=== PATIENT | female | born 1965 | race Caucasian/White ===

== ENCOUNTER 2019-07-08 16:20 | Emergency (ER) | payer MEDICAID, SELFPAY ==
[2019-06-30 10:36] VITALS: BMI 34.3
[2019-07-08 16:22] VITALS: BP 109/63; PULSE 74; RESP 18; TEMP 36.8; O2SAT 96; BMI 39.2
[2019-07-08 16:26] VITALS: BP 109/63; PULSE 71; RESP 16; TEMP 36.8; O2SAT 96
--- NOTE | 2019-07-08 17:02 | CT_ITS ---
STUDY: CT ABDOMEN AND PELVIS WITHOUT CONTRAST REASON FOR EXAM: Female, 54 years old. RUQ PAIN X 3 MONTHS. RADIATION DOSAGE (If Supplied By Facility): CTDIvol = ( 20.23 ) mGy, DLP = ( 1265.03 ) mGycm TECHNIQUE: Transaxial images were obtained from the dome of the diaphragm to the symphysis pubis without oral contrast, and without intravenous contrast. Sagittal and coronal images were reconstructed. Individualized dose optimization techniques were used for this CT. COMPARISON: None. FINDINGS: The visualized lung bases are unremarkable. The visualized portions of the heart are within normal limits. Normal liver. There are surgical clips in the gallbladder fossa consistent with a prior cholecystectomy. Normal spleen. There is a 3.4 cm cystic mass of the tail of the pancreas. There is otherwise atrophy of the pancreas. Normal bilateral adrenal glands. Normal right kidney. Normal left kidney. Evaluation of the GI tract is limited by absence of oral contrast. Cannot exclude stomach wall thickening. No dilated loops of bowel or evidence for obstruction. Cannot exclude segmental thickening of the rodriguez of the small or large bowel. Cannot exclude enteritis or colitis. Moderate diffuse fecal retention. Appendix within normal limits. There is diffuse atherosclerotic calcification of the abdominal aorta, without a demonstrated aneurysm. There is an IVC filter in place. Normal retroperitoneum. Normal urinary bladder. There is atrophy of the uterus. Normal abdominal wall. There are diffuse degenerative changes of the visualized lumbar spine. CT/Abdomen/Pelvis W IV Cont ONLY IMPRESSION: There is a 3.4 cm cystic mass of the tail of the pancreas, likely a pseudocyst. However recommend follow-up in 6 months to establish stability. Otherwise no definite acute or significant abnormality seen. Electronically Signed: Jean Gonzales MD at 18:46 EST , Service support ,
--- NOTE | 2019-07-08 17:03 | ED.VISSUMM ---
- ER Visit Summary Date of Service: 07/08/19 Chief Complaint: Upper quadrant abdominal pain for 3 months History of Present Illness: The patient is a 54 F history of prior stroke, hypertension and valvular heart disease. Prior cholecystectomy and heart valve surgery. Patient states that she has had right upper quadrant abdominal pain constantly for last 3 months. Also associated nausea intermittent vomiting. No diarrhea. No fever. No dysuria. Physical Examination: Middle-aged female no acute distress vital signs are stable afebrile. Her initial blood pressure is 109/63. She does not look septic or toxic. H EENT exam unremarkable. Neck nontender. Lungs are to auscultation. Heart regular rhythm no murmur rate about 70. Abdomen is soft. Nondistended. Normal bowel sounds. No peritoneal signs. She is tender in the right upper quadrant. She had a prior sternotomy on her chest. There are no peritoneal signs. No pulsatile mass. Moving all 4 extremities. No edema. Neurologically she is awake and alert. She does have dysarthria from a prior stroke. But her speech is understandable. Test Results: Labs unremarkable. CBC white count of 10. Hemoglobin 14. No bands. Chemistries normal normal creatinine gap. Liver enzymes normal. Lipase 63 not elevated. UA normal. CAT scan of the abdomen pelvis with IV contrast read by the radiologist and reviewed by me shows a pancreatic cyst likely a pseudocyst of 3.4 cm. There is also an IVC filter seen. The appendix was seen and is read as normal. Emergency Department Course and Treatment: Middle-aged female with right upper quadrant abdominal pain with a prior cholecystectomy. She will receive fentanyl for pain due to her blood pressure being around 100. IV fluids. Labs and a CT of the abdomen pelvis. Treatment Plan: Repeat exam patient is doing well at 1900. I went over all test results with her. She will be discharged home with outpatient follow-up with a primary care provider nurse practitioner Faina Best. Disposition: Discharge Impression: Acute right upper quadrant abdominal pain Incidental finding of a pancreatic cyst most likely a pseudocyst of 3.4 cm. This note was generated with Cinexioation software. It may contain incorrect words, spelling, and punctuation that were not noted in review of the chart prior to signing ED Disposition - Plan for ED Patient: Disposition: Home or Assisted Living Referrals: Eloise Best, RAVEN-C [Primary Care Provider] -
[2019-07-08 17:23] LABS: Absolute Lymphocyte Count 3.06 X10^3/uL (0.83-4.51); Absolute Neutrophil Count 6.5 X10^3/uL (2.0-7.7); Basophil# 0.03 X10^3/uL; Basophil% 0.3 % (0-1); Eosinophil# 0.19 X10^3/uL; Eosinophils% 1.8 % (0-5); Hematocrit 43.7 % (37-47); Hemoglobin 14.1 g/dL (12.0-15.0); Lymphocyte # 3.06 X10^3/ul (4.0); Lymphocyte % 29.5 % (19-41); Mean Corp Hgb Conc 32.3 g/dL (32-36); Mean Corpuscular Hgb 27.8 pg (27.0-32.0); Mean Platelet Vol. 8.7 fl (6.2-12.0); Monocyte# 0.58 X10^3/uL; Monocyte% 5.6 % (0-10); NRBC Flagged by Analyzer 0 % (0-5); Neutrophil # 6.49 X10^3/uL (2.7-7.7); Neutrophil % 62.6 % (47-70); Platelet Count 215 K/mm3 (150-450); RBC Distribution Width CV 13.7 % (11.6-14.6); RBC Distribution Width SD 42.5 fl (35.1-43.9); Red Blood Count 5.08 M/mm3 (4.2-5.4); White Blood Count 10.4 K/mm3 (4.4-11.0)
[2019-07-08] MEDS: fentaNYL 100 MCG/2 ML Ampul 25 MCG IV (17:25)
[2019-07-08] MEDS: Ondansetron 4 MG/2 ML Vial IV (17:25)
[2019-07-08] MEDS: 0.9% Normal Saline 1,000 ML 1000 ML IV (17:25)
[2019-07-08 17:26] VITALS: BP 110/67; PULSE 78; RESP 16; O2SAT 98
[2019-07-08 17:44] LABS: AST(SGOT) 27 U/L (15-37); Alanine Aminotransfer ALT/SGPT 39 U/L (13-56); Albumin, Serum 3.3 g/dL (3.2-5.0); Alkaline Phosphatase 95 U/L (45-117); Anion Gap 5 (5-15); BUN 11 mg/dL (7-18); BUN/Creat Ratio 14.5 RATIO (10-20); Calcium,Total 8.3 mg/dL (8.5-10.1); Chloride 104 mmol/L (98-107); Creatinine, Serum 0.76 mg/dL (0.55-1.02); EST Glomerular Filtration Rate 84 mL/min (>60); Est Glom Filt Rate - Afr Amer 101 mL/min (>60); Estimated Creatinine Clearance 68.37 ml/min; Glucose 89 mg/dL (74-106); Lipase 63 U/L (73-393); Potassium 4.2 mmol/L (3.5-5.1); Protein, Total 7.3 g/dL (6.4-8.2); Sodium Level 137 mmol/L (136-145)
[2019-07-08 18:13] LABS: Bacteria 0 SEEN /hpf (None Seen); Mucous, Urine 0 SEEN /hpf (<or=2+); Red Blood Cells-Urine 0 SEEN /hpf (0-5); Squamous Epithelial Cells - UA 0 SEEN /hpf (5-10); White Blood Cells 0 SEEN /hpf (0-5)
[2019-07-08 18:19] LABS: Color, Urine Yellow (Yellow); Glucose, Dipstick Normal (Normal); Ketone-Dipstick Negative (Negative); Leukocyte Esterase-Dipstick Negative /ul (Negative); Nitrite-Dipstick Negative (Negative); Occult Blood-Urine Negative /ul (Negative); Protein-Dipstick Negative (Negative); Specific Gravity, Urine 1.005 (1.002-1.030); Urine Bilirubin Dipstick Negative (Negative); Urine Clarity Clear (Clear); Urine Urobilinogen Normal (Normal); Urine pH 6.5 (5.0 - 8.0)
[2019-07-08 18:37] VITALS: PULSE 68; RESP 12; O2SAT 95
--- NOTE | 2019-07-08 19:03 | DCINST.ED_ITS ---
ED Disposition - Plan for ED Patient: Disposition: Home or Assisted Living Instructions: ABDOMINAL PAIN, Unknown Cause, (Female) Referrals: Eloise Best, GAS TENDER-C [Primary Care Provider] - 1 Week Additional Instructions: Lab work was all normal. Your CAT scan showed an incidental finding of a small cyst on your pancreas most likely a pseudocyst. You can follow that up with your primary care provider.
[2019-07-08 19:42] VITALS: BP 92/59; PULSE 68; RESP 16; O2SAT 97
--- NOTE | 2019-07-08 19:43 | ED.RN ---
REPORT TO [facility]. REVIEWED D/C INSTRUCTIONS, FOLLOW UP CARE, AND S/S THAT WOULD WARRANT A RETURN TO THE ED WITH PT. PT VERBALIZED AN UNDERSTANDING AND DENIES FURTHER QUESTIONS FOR THIS RN. PT SKIN P/W/D, RESP EVEN AND UNLABORED, PT A&O X 3, NO DISTRESS NOTED. PT OUT OF ED WITH EMS.
--- NOTE | 2019-07-08 20:27 | ED.RN ---
THIS RN SPOKE WITH DONITA RAMIREZ AT [facility]. RN REPORTS SHE DID NOT RECEIVE REPORT ABOUT PTS RETURN FROM [facility]. THIS RN REVIEWED PT VISIT WITH NURSE, AND D/C PAPERWORK AND FAXED IT BACK TO [facility] #[phone]. OFFERED FOR DONITA TO SPEAK WITH PRIMARY RN, WHICH SHE DECLINED. PHONE NUMBER FOR PT [employer] WAS GIVEN TO NURSE DONITA. DONITA VERBALIZES NO FURTHER QUESTIONS AT THIS TIME.
== END 2019-07-08 19:45 | disposition home or self-care (01) ==
LOC: ED 17:25
PROVIDERS: Emergency Provider Emergency Medicine; Family Provider Nurse Practitioner Adult Health; PCP Nurse Practitioner Adult Health
DX: K86.2 Cyst of pancreas (principal); R10.11 Right upper quadrant pain; R11.2 Nausea with vomiting, unspecified; I10 Essential (primary) hypertension; I69.322 Dysarthria following cerebral infarction; Z90.49 Acquired absence of other specified parts of digestive tract; Z79.82 Long term (current) use of aspirin; Z79.899 Other long term (current) drug therapy; F17.200 Nicotine dependence, unspecified, uncomplicated
CPT/HCPCS: 74177; 80048; 80076; 81001; 83690; 85025; 96361; 96374; 96375; 99285; J7030; P9612; Q9967; A4216; J2405

== ENCOUNTER → 2019-07-14 13:55 | Outpatient (CLI) | payer MEDICAID, SELFPAY ==
[2019-06-30 10:36] VITALS: BMI 34.3
[2019-07-08 16:22] VITALS: BMI 39.2
--- NOTE | 2019-07-14 13:59 | ECHOD_ITS ---
Reason For Study: VALVE REPLACEMENT EVAL Procedure This was a 2D Doppler, Color Flow transthoracic echocardiogram. The study was technically limited. The study was technically difficult. Limited views were obtained. Exam performed in department. Left Ventricle Normal LV size. Left ventricular systolic function is normal. The estimated ejection fraction is 60 %. Stage 1 diastolic dysfunction. No regional wall motion abnormalities noted. Right Ventricle Normal RV size. Normal systolic function. Atria Normal left atrium. Normal right atrium. Mitral Valve Mean transmitral valve gradient 5.6 mmHg. Stable appearing bioprosthetic mitral valve apparatus. Tricuspid Valve Normal tricuspid valve. Mild tricuspid valve insufficiency. Pulmonary artery systolic pressure is 30 mmHg. Aortic Valve The aortic valve is not well visualized. Pulmonic Valve The pulmonic valve is not well visualized. Great Vessels Normal aortic root. The pulmonary artery is normal size. Normal inferior vena cava. Pericardium/Pleural No pericardial effusion. MMode/2D Measurements & Calculations LVIDd: 2.7 cm IVSd: 1.0 cm LVOT diam: 2.0 cm LVIDs: 1.7 cm LVPWd: 1.0 cm LVOT area: 3.2 cm2 FS: 35.7 % Ao root diam: 3.2 cm Time Measurements MV dec time: 0.42 sec Doppler Measurements & Calculations MV E max evi: 139.6 cm/sec MV V2 max: 159.6 cm/sec MV P1/2t max evi: 145.6 cm/sec MV A max evi: 150.6 cm/sec MV max P.2 mmHg MV P1/2t: 168.0 msec MV E/A: 0.93 MV V2 mean: 115.2 cm/sec MV mean P.6 mmHg MV dec slope: 253.9 cm/sec2 MV V2 VTI: 57.6 cm MVA(P1/2t): 1.3 cm2 Ao V2 max: 135.9 cm/sec LV V1 max: 128.2 cm/sec PA V2 max: 105.7 cm/sec Ao max P.4 mmHg LV V1 max P.6 mmHg BRIEN(V,D): 3.0 cm2 TR max evi: 248.2 cm/sec MV P1/2t-pr_phl: 158.6 msec TR max P.6 mmHg Interpretation Summary Normal LV size. Left ventricular systolic function is normal. The estimated ejection fraction is 60 %. No regional wall motion abnormalities noted. Stage 1 diastolic dysfunction. Stable appearing bioprosthetic mitral valve apparatus. The study was technically limited. The study was technically difficult. Ordering Physician: Bonifacio Fox Referring Physician: Bonifacio Fox Performed By: Fern Sweeney RDCS
== END ==
PROVIDERS: Family Provider Nurse Practitioner Adult Health; PCP Nurse Practitioner Adult Health; Referring Provider Internal Medicine Cardiovascular Disease; Visit Provider Internal Medicine Cardiovascular Disease
DX: I35.9 Nonrheumatic aortic valve disorder, unspecified (principal)
CPT/HCPCS: 93306

== ENCOUNTER 2020-07-11 21:25 | Emergency (ER) | payer MEDICAID, SELFPAY ==
[2020-02-20 14:02] VITALS: BMI 44.6
[2020-07-11 21:26] VITALS: BP 103/83; PULSE 76; RESP 16; TEMP 37; O2SAT 97; BMI 39.4
--- NOTE | 2020-07-11 21:30 | CT_ITS ---
ABD PAIN AND SWELLING SINCE YESTERDAY. EXAMINATION: CT Abdomen And Pelvis W/O Contrast Injection TECHNIQUE: Helically acquired images were obtained of the abdomen and pelvis without oral or IV contrast as per renal stone protocol. A radiation dose optimization technique was used for this scan. IV Contrast dosage and agent: None Oral contrast: None. COMPARISON: Abdominal pain and swelling since yesterday FINDINGS: LOWER CHEST: Lung bases are clear. No cardiomegaly or pericardial effusion. Mitral valve prosthesis LIVER: Homogeneous. No focal mass. GALLBLADDER AND BILIARY TREE: Cholecystectomy No intra- or extrahepatic biliary ductal dilation. PANCREAS: Again noted is a low density lesion seen at the tail the pancreas and measures approximately 3.3 cm. There are associated small calcifications. This is of similar size when compared to prior study. I would recommend MRI with pancreatic protocol follow-up for further evaluation SPLEEN: Normal size without focal cystic or solid mass. ADRENAL GLANDS: No nodules. KIDNEYS AND URETERS: Normal renal size and position. No hydronephrosis or nephrolithiasis. PERITONEUM: No ascites or free air. No other fluid collection. BOWEL: No evidence of acute appendicitis. No stomach or bowel distension. No focal inflammatory change. LYMPH NODES: No enlarged mesenteric or retroperitoneal lymph nodes. VESSELS: Aorta is non-dilated. There is an inferior vena cava filter in similar position to the prior study URINARY BLADDER: Incompletely distended question anterior wall thickening REPRODUCTIVE ORGANS: No pelvic masses. ABDOMINAL WALL: No discrete abdominal or pelvic wall hernia. BONES: Degenerative changes in lumbar spine. Grade 1 anterior spondylolisthesis L4 on L5 which was present on the prior study that appears degenerative. No spondylolysis. There is moderate bilateral neural foraminal narrowing at this level. Decreased disc space at L5-S1 similar to prior study . Midline sternotomy wires CT/Abdomen/Pelvis without Cont IMPRESSION: No significant change when compared to prior study. There is a 3.3 cm low-density lesion with associated calcification seen at the tail the pancreas. This may represent a pancreatic pseudocyst however other etiologies are not entirely excluded and if clinically indicated consider a follow-up MRI with pancreatic protocol for further evaluation Cholecystectomy Incomplete distention of the bladder. I cannot exclude anterior bladder wall thickening. Degenerative changes of the lumbar spine as discussed Individualized dose optimization techniques were used for this CT. at 2223 Reported and signed by: Penelope Nazario DO Electronically Signed: Penelope Nazario DO at 22:21 EST Tel , Service support ,
[2020-07-11 21:34] VITALS: BP 103/83; PULSE 76; RESP 16; TEMP 37; O2SAT 97
[2020-07-11] MEDS: Morphine 2 MG/ML Syringe IV (21:40)
[2020-07-11] MEDS: Ondansetron 4 MG/2 ML Vial IV (21:40)
--- NOTE | 2020-07-11 21:56 | ED.DCSUM_ITS ---
History of Present Illness Chief Complaint: Abd Pain Narrative: Patient presents with abdominal pain for 2 days, she describes abdominal bloating. She has had this pain for 2 days however she tells me she has had this pain intermittently for a few years. She is mostly worried about some sort of cancer in her abdomen. She has no diarrhea or constipation she denies urinary symptoms. She has no chest pain or shortness of breath. She is in an assisted living. 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 She is bedridden and wheelchair-bound. She does take opiates 3 times a day for chronic pain. Past medical history: This was reviewed, the past medical history is extensive including chronic hypertension hypercholesterolemia, diabetes, stroke, chronic debility and others. Review of systems: All systems negative except as indicated General: Denies: Fever Eyes: Denies: Visual changes - bilaterally ENT: Denies: Rhinorrhea, Sore throat Cardiovascular: Denies: Chest pain Respiratory: Denies: Dyspnea, Cough Gastrointestinal: Abdominal pain as in HPI Genitourinary: Denies: Dysuria Musculoskeletal: Denies: Myalgias Skin: Denies: Rash Neurological: Denies: Headache, no focal weakness Psych: Reports: negative Hematologic: Denies: Easy bruising, Easy bleeding Physical exam General: Patient does not appear in significant distress. She does appear chronically ill. Head: Normocephalic, Atraumatic Eyes: Conjunctiva not pale ENT: Moist mucous membranes Neck: Supple, Nontender, No lymphadenopathy Cardiovascular: Regular rate, Regular rhythm Respiratory: No distress, CTA bilaterally Abdomen: Soft, there is tenderness throughout the abdomen without any guarding or rebound. No specific pain at McBurney's. No right upper quadrant pain specifically, negative Pham's. No CVA tenderness Back: Nontender, Normal Inspection. Negative for: CVA tenderness Extremities: Nontender, chronic bilateral lower extremity edema Skin: Normal color, No rash Neurological: Alert, no focal deficit, weakness in both lower legs. Psychological: Normal affect Past Medical History - Allergies and Home Meds Allergies/Adverse Reactions: Allergies No Known Allergies Allergy (Verified 02/20/20 14:04) Primary Care Physician: Eloise Best INDUSTRIAL G[employer]TER HELPER, INDUST[employer]AL G[employer] FITTER HELPER-C [Primary Care Provider] - 3-5 Days Smoking Status: Current every day smoker Physical Exam Vital Signs/Narrative: Vital Signs Temp Pulse Resp BP Pulse Ox 07/11/20 21:34 98.6 F 76 16 103/83 H 97 07/11/20 21:26 98.6 F 76 16 103/83 H 97 Diagnostic/Tx/Re-eval - Medical Decision Making Patient has a normal ED work-up. She is reassured she feels white relieved and I will discharge in stable condition ED Disposition - Plan for ED Patient: Disposition: Home or Assisted Living Diagnosis: Abdominal pain Instructions: ED Abdominal Pain Unkn Cause Fem Referrals: Eloise Best INDUSTRIAL GAS FITTER HELPER, INDUSTRIAL GAS FITTER HELPER-C [Primary Care Provider] - 3-5 Days
[2020-07-11 22:12] LABS: Absolute Lymphocyte Count 2.79 X10^3/uL (0.83-4.51); Absolute Neutrophil Count 5.7 X10^3/uL (2.0-7.7); Basophil# 0.04 X10^3/uL; Basophil% 0.4 % (0-1); Eosinophil# 0.27 X10^3/uL; Eosinophils% 2.9 % (0-5); Hematocrit 44.9 % (37-47); Hemoglobin 14.3 g/dL (12.0-15.0); Lymphocyte # 2.79 X10^3/ul (4.0); Lymphocyte % 29.8 % (19-41); Mean Corp Hgb Conc 31.8 g/dL (32-36); Mean Corpuscular Hgb 27.3 pg (27.0-32.0); Mean Corpuscular Volume 85.7 fL (81-99); Mean Platelet Vol. 9.1 fl (6.2-12.0); Monocyte# 0.55 X10^3/uL; Monocyte% 5.9 % (0-10); NRBC Flagged by Analyzer 0 % (0-5); Neutrophil # 5.71 X10^3/uL (2.7-7.7); Neutrophil % 60.9 % (47-70); Platelet Count 264 K/mm3 (150-450); RBC Distribution Width CV 13.3 % (11.6-14.6); RBC Distribution Width SD 41.1 fl (35.1-43.9); Red Blood Count 5.24 M/mm3 (4.2-5.4); White Blood Count 9.4 K/mm3 (4.4-11.0)
[2020-07-11 22:13] LABS: ALB/GLOB Ratio 0.9 RATIO (0.9-2.4); AST(SGOT) 10 U/L (15-37); Alanine Aminotransfer ALT/SGPT 22 U/L (13-56); Albumin, Serum 3.6 g/dL (3.2-5.0); Alkaline Phosphatase 112 U/L (45-117); Anion Gap 4 (5-15); BUN 10 mg/dL (7-18); BUN/Creat Ratio 12.1 RATIO (10-20); Calcium,Total 9.1 mg/dL (8.5-10.1); Chloride 106 mmol/L (98-107); Creatinine, Serum 0.82 mg/dL (0.55-1.02); EST Glomerular Filtration Rate 76 mL/min (>60); Est Glom Filt Rate - Afr Amer 92 mL/min (>60); Estimated Creatinine Clearance 59.87 ml/min; Globulin 4.1 g/dL (2.2-4.2); Glucose 98 mg/dL (74-106); Lipase 75 U/L (73-393); Protein, Total 7.7 g/dL (6.4-8.2); Sodium Level 138 mmol/L (136-145)
--- NOTE | 2020-07-11 23:01 | ED.RN ---
called Violeta after hours at [facility] to inform of pt's discharge and setting up transport.
[2020-07-11 23:03] VITALS: BP 101/68; PULSE 66; RESP 16; O2SAT 94
[2020-07-12 00:20] VITALS: RESP 16
== END 2020-07-12 00:42 | disposition home or self-care (01) ==
LOC: ED 23:07
PROVIDERS: Emergency Provider Emergency Medicine; PCP Nurse Practitioner Adult Health
DX: R10.9 Unspecified abdominal pain (principal); R14.0 Abdominal distension (gaseous); G89.29 Other chronic pain; I10 Essential (primary) hypertension; E78.00 Pure hypercholesterolemia, unspecified; E11.9 Type 2 diabetes mellitus without complications; G83.9 Paralytic syndrome, unspecified; Z99.3 Dependence on wheelchair; Z74.01 Bed confinement status; Z86.73 Personal history of transient ischemic attack (TIA), and cerebral infarction without residual deficits; Z79.82 Long term (current) use of aspirin; Z79.891 Long term (current) use of opiate analgesic; Z79.899 Other long term (current) drug therapy; F17.200 Nicotine dependence, unspecified, uncomplicated
CPT/HCPCS: 74176; 80053; 83605; 83690; 84484; 85025; 96374; 96375; 99285; A4216; J2405

== ENCOUNTER 2020-08-02 06:34 | Emergency (ER) | payer MEDICAID, SELFPAY ==
[2020-08-02 06:35] VITALS: BP 124/80; PULSE 78; RESP 19; TEMP 36.8; O2SAT 99; BMI 37.5
--- NOTE | 2020-08-02 06:43 | ED.DCSUM_ITS ---
History of Present Illness Chief Complaint: Back Informant: Patient Onset: Yesterday Context: Gradual Onset Timing: Continuous Current Severity: Moderate Maximum Severity: Moderate Narrative: Patient is a 55-year-old female history of chronic back pain and pain management, prior stroke with some aphasia and right-sided deficit, who presents with exacerbation of her pain. The patient states that her prescription was supposed to be refilled yesterday, but was not called in until later in the day. She was unable to get it filled. She has been without her analgesics for almost 24 hours. She states that she was doing some moving in her apartment yesterday. Since then, she has had increasing back pain. She states this is her normal pain. She denies trauma. She denies weakness. She is otherwise been in her normal state of health. Prior similar symptoms: Yes Recent Illness/Hospitalization: No Past Medical History - Allergies and Home Meds Allergies/Adverse Reactions: Allergies No Known Allergies Allergy (Verified 08/02/20 06:36) Primary Care Physician: Eloise Best TURKEY PINNER, [facility] PINNER-C [Primary Care Provider] - Prior records reviewed: Yes Past Medical History: - - Prior stroke, chronic back pain Surgical History: noncontributory Smoking Status: Current every day smoker Review of Systems General: Denies: Chills, Fever, Sweats Eyes: Denies: Visual changes - bilaterally, Diplopia ENT: Denies: Rhinorrhea, Sore throat Cardiovascular: Denies: Chest pain, Palpitations Respiratory: Denies: Dyspnea, Cough, Dyspnea on exertion Gastrointestinal: Denies: Abdominal pain, Nausea, Vomiting, Diarrhea, Melena, Hematochezia Genitourinary: Denies: Dysuria, Hematuria, Frequency Musculoskeletal: Reports: Back pain. Denies: Extremity Pain Skin: Denies: Rash, Wounds Neurological: Denies: Headache, Weakness, Numbness Physical Exam Vital Signs/Narrative: Vital Signs Temp Pulse Resp BP Pulse Ox 08/02/20 06:35 98.2 F 78 19 H 124/80 H 99 Inital Vital Signs reviewed: Yes General: Well nourished, Well developed, No Acute Distress Head: Normocephalic, Atraumatic Eyes: Perrl, EOMI ENT: Moist mucous membranes, No rhinorrhea Neck: Supple, Nontender Cardiovascular: Regular rate, Regular rhythm, No murmurs Respiratory: No distress, CTA bilaterally, Chest nontender Abdomen: Soft, Nontender, Nondistended, Normal bowel sounds Back: Normal Inspection. Negative for: Spinal tenderness Extremities: Nontender, No edema Skin: Normal color, No rash Neurological: Alert, Oriented x3, Cranial nerves II-XII grossly intact, Normal Strength, Normal Sensation Psychological: Normal affect, Normal Mood Diagnostic/Tx/Re-eval - Medical Decision Making The patient has no red flag symptoms. She has normal pulses in her lower extremities. She has no weakness over baseline. I was able to confirm through the [place] automated report that she does have a prescription that is active at her pharmacy. She is given a dose of her oral analgesics and will be discharged back to her assisted living. Impression Exacerbation of chronic back pain ED Disposition - Plan for ED Patient: Instructions: ED Back Pain (Acute or Chronic) Referrals: Eloise Best TUR[employer] PINNER, [facility]UR[facility] PINNER-C [Primary Care Provider] -
== END 2020-08-02 09:16 | disposition home or self-care (01) ==
LOC: ED 06:58
PROVIDERS: Emergency Provider Emergency Medicine; PCP Nurse Practitioner Adult Health
DX: M54.9 Dorsalgia, unspecified (principal); G89.29 Other chronic pain; I69.320 Aphasia following cerebral infarction; Z79.82 Long term (current) use of aspirin; Z79.899 Other long term (current) drug therapy; F17.200 Nicotine dependence, unspecified, uncomplicated
CPT/HCPCS: 99284

== ENCOUNTER → 2020-08-22 15:26 | Outpatient (CLI) | payer MEDICAID, SELFPAY ==
[2020-08-02 06:35] VITALS: BMI 37.5
== END ==
PROVIDERS: PCP Nurse Practitioner Adult Health; Referring Provider Anesthesiology Pain Medicine; Visit Provider Anesthesiology Pain Medicine
DX: F11.20 Opioid dependence, uncomplicated (principal)
CPT/HCPCS: 36415

== ENCOUNTER 2020-12-01 12:35 | Observation (INO) | payer MEDICAID, SELFPAY ==
[2020-12-01] VITALS (10 sets, daily range): BP systolic 94–105; BP diastolic 54–70; PULSE 62–80; RESP 15–18; TEMP 36.6–36.8; O2SAT 95–99; BMI 38.0; BMI 37.1
--- NOTE | 2020-12-01 13:01 | EKG12_ITS ---
Test Reason : CP Blood Pressure : / mmHG Vent. Rate : 077 BPM Atrial Rate : 077 BPM P-R Int : 212 ms QRS Dur : 084 ms QT Int : 384 ms P-R-T Axes : 058 018 010 degrees QTc Int : 434 ms Sinus rhythm with 1st degree A-V block Low voltage QRS Inferior infarct , age undetermined Abnormal ECG Confirmed by STEPHANIE CHE, JOLANTA ([id number]), senior editor DOREEN BONDS ([id number]) on 12/04/2020 12:45:30 PM Referred By: STEFANI Confirmed By:JOLANTA BROWN MD
--- NOTE | 2020-12-01 13:01 | RAD_ITS ---
STUDY: X-RAY CHEST REASON FOR EXAM: Female, 55 years old. Chest pain TECHNIQUE: Single AP portable view of the chest. COMPARISON: Prior comparison studies are not available for review at this time. FINDINGS: No focal infiltrate is seen. There is no demonstrated pleural abnormality. Status post mediastinotomy and valve replacement. Normal mediastinum and ash. Normal visualized pulmonary arteries. Normal visualized aortic arch and descending thoracic aorta. No demonstrated acute osseous changes. There is no demonstrated abnormality of the visualized soft tissue structures of the upper abdomen. RAD/Chest 1 View (Portable) IMPRESSION: No active pulmonary disease. Electronically Signed: Juan Antonio Julian MD at 13:30 EDT Tel , Service support ,
--- NOTE | 2020-12-01 13:02 | ED.VIS.CHEST ---
HPI History of Present Illness Chief Complaint: Chest Pain Detail of Chief Complaint: Chest pain that started 2 hours ago Informant: patient Onset/Context/Timing Onset: Today Activity at onset: sudden Current Severity: 01/11 Associated Symptoms: Positive for Nausea and Vomiting Narrative Prior Similar Symptoms: Yes PFSH [facility] Medical History (Updated 12/01/20 @ 14:[address] 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) COPD (chronic obstructive pulmonary disease) Essential (primary) hypertension History of CVA (cerebrovascular accident) Hyperlipidemia Opiate dependence Postural dizziness with presyncope Home Medications aspirin 81 mg tablet,delayed release 81 mg PO DAILY 06/29/19 [History Last Taken Unknown] atorvastatin 80 mg tablet 80 mg PO DAILY 06/29/19 [History Last Taken Unknown] escitalopram oxalate 10 mg tablet 10 mg PO DAILY 06/29/19 [History Last Taken Unknown] gabapentin 300 mg capsule 300 mg PO QHS 06/29/19 [History Last Taken Unknown] lisinopril 2.5 mg tablet 2.5 mg PO DAILY 06/29/19 [History Last Taken Unknown] rivaroxaban 20 mg tablet 20 mg PO QPM 06/29/19 [History Last Taken Unknown] topiramate 50 mg tablet 50 mg PO QHS tab 06/29/19 [History Last Taken Unknown] omega-3 fatty acids 1,000 mg capsule 1,000 mg PO DAILY 06/30/19 [History Last Taken Unknown] cholecalciferol (vitamin D3) 25 mcg (1,000 unit) tablet 1 tab PO DAILY 02/20/20 [History Last Taken Unknown] lactulose 10 gram/15 mL oral solution 30 ml PO BID ml 02/20/20 [History Last Taken Unknown] morphine 30 mg tablet,extended release 30 tab PO TID 02/20/20 [History Last Taken Unknown] omeprazole 20 mg tablet,delayed release 20 mg PO DAILY 02/20/20 [History Last Taken Unknown] potassium chloride 10 mEq tablet,extended release(part/cryst) 20 meq PO DAILY tab 02/20/20 [History Last Taken Unknown] Polyethylene Glycol 3350 [Gavilax] 17 g PO DAILY PRN PRN 08/02/20 [History Last Taken Unknown] acetaminophen 500 mg PO TID PRN PRN 08/02/20 [History Last Taken Unknown] albuterol sulfate 2.5 mg INHALATION Q4H PRN PRN 08/02/20 [History Last Taken Unknown] bisacodyl 5 - 10 mg PO DAILY PRN PRN 08/02/20 [History Last Taken Unknown] ondansetron HCl 4 mg PO Q8H PRN PRN 08/02/20 [History Last Taken Unknown] polyethylene glycol 3350 17 gm PO DAILY PRN PRN 08/02/20 [History Last Taken Unknown] sennosides 2 tab PO PRN PRN 08/02/20 [History Last Taken Unknown] tizanidine 4 mg PO QHS 08/02/20 [History Last Taken Unknown] Allergy/AdvReac Type Severity Reaction Status Date / Time No Known Allergies Allergy Verified 08/02/20 06:36 Surgical History H/O mitral valve replacement Social History (Updated 02/20/20 @ 15:[address] Bonifacio Fox MD) Smoking Status: Current every day smoker tobacco type: cigarettes ROS ROS ED Review of Systems ROS Unobtainable: other Constitutional Constitutional ED: Reports lethargy; Denies chills, fever(s), sweats or weight loss Eyes Eyes: Denies blurry vision, change in vision or diplopia ENT ENT ED: Denies rhinorrhea or sore throat Cardiovascular Cardiovascular: Reports chest pain; Denies orthopnea or racing heartbeat Respiratory/Chest Respiratory/Chest: Reports dyspnea and dyspnea on exertion; Denies cough, orthopnea or sputum Gastrointestinal Gastrointestinal: Reports nausea and vomiting; Denies abdominal pain or diarrhea Genitourinary Genitourinary ED: Denies dysuria, hematuria or urinary frequency Musculoskeletal Musculoskeletal: Denies arthralgias, back pain, myalgias or neck pain Integumentary Denies abscess, Abrasions or rash Neurologic Neurologic: Denies headache(s) or weakness Psychiatric Psychiatric: Denies anxiety, depression or suicidal thoughts Endocrine Endocrinology: Denies polydipsia, polyphagia or polyuria Hematologic/Lymphatic Hematologic/Lymphatic: Denies easy bleeding, easy bruising or lymphadenopathy Allergic/Immunologic Allergic/Immunologic ED: Denies mouth swelling, tongue swelling or urticaria EXAM Physical Exam Const Vital Signs: 12/01/20 12:35 12/01/20 13:28 12/01/20 14:15 Temperature 98.1 F Temperature Source Oral Pulse Rate 79 70 62 Respiratory Rate 18 Blood Pressure 98/60 100/70 100/63 Blood Pressure Mean 72 75 Pulse Ox 95 99 Oxygen Delivery Method Room Air Room Air 12/01/20 14:17 Temperature Temperature Source Pulse Rate Respiratory Rate Blood Pressure Blood Pressure Mean Pulse Ox 99 Oxygen Delivery Method Room Air Positive well nourished and well developed General Appearance ED: well developed and NAD HEENT Reports TM's clear and moist mucous membranes normocephalic and atraumatic; Negative for trauma or tenderness Tympanic Membrane ED: Yes TM's clear Eyes PERRL and EOMs intact bilaterally General Eye ED: Negative for pale conjunctiva or scleral icterus Neck no lymphadenopathy, supple and no JVD General: Negative for tenderness Chest Wall inspection of chest normal and palpation of chest normal Chest: Negative for tenderness Resp normal respiratory effort and clear to auscultation bilaterally Effort and Inspection: Negative for respiratory distress or pain with movement Auscultation: Negative for rhonchi, wheezes or diminished lung sounds Cardio regular rate, regular rhythm, S1 normal heart sound, S2 normal heart sound and no murmurs Peripheral Pulses: pulses 2+ throughout GI normal to inspection, nondistended, normoactive bowel sounds, soft to palpation, non-tender, non-distended and no masses Back/Spine no CVA tenderness and no thoracic nor lumbar tenderness Extremity normal to inspection General Extremety ED: Negative for edema General Extremity: Negative for edema Neuro oriented x3, CN's II-XII intact bilaterally, no sensory deficits noted and gait normal Sensorium / Orientation: awake, alert, oriented to person, oriented to place and oriented to time Motor Exam: strength 5/5 throughout and strength abnormal Psych mental status grossly normal Skin no rashes or lesions noted and no wounds Heart Score History: Highly Suspicious ECG: Nonspecific Repolarization Age: >45 - <65 years Risk Factors: >/= 3 Risk Factors or History of CAD Troponin: </= Normal Limit Score: 6 MDM MDM Lab Data Labs: Laboratory Results - last 24 hr 12/01/20 12/01/20 12/01/20 12:55 12:55 12:55 WBC 9.4 RBC 5.32 Hgb 14.5 Hct 45.4 MCV 85.3 MCH 27.3 MCHC 31.9 L RDW Std Deviation 45.1 H RDW Coeff of [place] 14.7 H Plt Count 248 MPV 9.2 Immature Gran % (Auto) 0.300 Neut % (Auto) 65.3 Lymph % (Auto) 26.3 [place] % (Auto) 5.6 Eos % (Auto) 2.0 Baso % (Auto) 0.5 Absolute Neuts (auto) 6.1 Absolute Lymphs (auto) 2.46 Nucleated RBC % 0 D-Dimer Quant (PE/DVT) 0.33 Sodium 140 Potassium 3.9 Chloride 107 Carbon Dioxide 27.0 Anion Gap 6 BUN 8 Creatinine 0.79 Estim Creat Clear Calc 62.14 Est GFR (MDRD) Af Amer 96 Est GFR (MDRD) Non-Af 79 BUN/Creatinine Ratio 10.1 Glucose 106 Calcium 9.3 Troponin I < 0.015 Radiography Chest X-Ray - ED: 1 View Diagnostic Testing: Radiology Impression Chest X-Ray 12/01/20 13:01 IMPRESSION: No active pulmonary disease. Electronically Signed: Juan Antonio Julian MD at 13:30 EDT Tel , Service support , 1 view chest x-ray obtained interpreted by myself as no acute disease process. Radiology in agreement. EKG Initial EKG: Comments: Sinus rhythm with a ventricular rate of 77 bpm with a first-degree AV block and old inferior infarct noted. Prior EKG tracings: not available for review Discharge Plan Dx/Rx/DC Orders Clinical Impression: Chest pain Disposition Disposition: Acute Care Hospital [facility]
[2020-12-01 13:07] LABS: Absolute Lymphocyte Count 2.46 X10^3/uL (0.83-4.51); Absolute Neutrophil Count 6.1 X10^3/uL (2.0-7.7); Basophil# 0.05 X10^3/uL; Basophil% 0.5 % (0-1); Eosinophil# 0.19 X10^3/uL; Hematocrit 45.4 % (37-47); Hemoglobin 14.5 g/dL (12.0-15.0); Lymphocyte # 2.46 X10^3/ul (0.83-4.51); Lymphocyte % 26.3 % (19-41); Mean Corp Hgb Conc 31.9 g/dL (32-36); Mean Corpuscular Hgb 27.3 pg (27.0-32.0); Mean Corpuscular Volume 85.3 fL (81-99); Mean Platelet Vol. 9.2 fl (6.2-12.0); Monocyte# 0.52 X10^3/uL; Monocyte% 5.6 % (0-10); NRBC Flagged by Analyzer 0 % (0-5); Neutrophil # 6.11 X10^3/uL (2.7-7.7); Neutrophil % 65.3 % (47-70); Platelet Count 248 K/mm3 (150-450); RBC Distribution Width CV 14.7 % (11.6-14.6); RBC Distribution Width SD 45.1 fl (35.1-43.9); Red Blood Count 5.32 M/mm3 (4.2-5.4); White Blood Count 9.4 K/mm3 (4.4-11.0)
--- NOTE | 2020-12-01 13:16 | ED.RN ---
Pt us a resident at [facility]. YOJANA Garcia called from facility and is faxing pt's chart to ed. Contact phone number is [phone]
[2020-12-01 13:19] LABS: D-Dimer Quantitative (DVT/PE) 0.33 FEU/ug/m (0.27-0.49)
[2020-12-01 13:25] LABS: Anion Gap 6 (5-15); BUN 8 mg/dL (7-18); BUN/Creat Ratio 10.1 RATIO (10-20); Calcium,Total 9.3 mg/dL (8.5-10.1); Chloride 107 mmol/L (98-107); Creatinine, Serum 0.79 mg/dL (0.55-1.02); EST Glomerular Filtration Rate 79 mL/min (>60); Est Glom Filt Rate - Afr Amer 96 mL/min (>60); Estimated Creatinine Clearance 62.14 ml/min; Glucose 106 mg/dL (74-106); Potassium 3.9 mmol/L (3.5-5.1); Sodium Level 140 mmol/L (136-145)
[2020-12-01] MEDS: Nitroglycerin Oint 1 INCH PACKET TRANSDERM. (13:28)
[2020-12-01] MEDS: Ondansetron 4 MG/2 ML Vial IV (13:28)
[2020-12-01] MEDS: Morphine 4 MG/ML Syringe IV (13:28)
[2020-12-01] MEDS: 0.9% Normal Saline 1,000 ML 150 ML IV (13:28)
--- NOTE | 2020-12-01 14:46 | HP.PCM.HOS_ITS ---
HPI - General General Date of Admission: 12/01/20 Date of Service: 12/01/20 Chief Complaint: chest pain HPI Narrative ИВАН CHAUHAN, is a 55 F who presents presents with midsternal chest pain that began at 11 AM. History is difficult to obtain but patient is able to state that she had chest pain that started around 11 but has pain all over including her stomach. Patient presented to the emergency room from her half-way and had a work-up thus far has been unremarkable. Patient does have a history of valve replacement as well as stroke. Patient being brought in for further evaluation of her chest pain. [facility] Medical History (Updated 12/01/20 @ 14:[address] 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 (CVA) COPD (chronic obstructive pulmonary disease) Essential (primary) hypertension History of CVA (cerebrovascular accident) Hyperlipidemia Opiate dependence Postural dizziness with presyncope Home Medications aspirin 81 mg tablet,delayed release 81 mg PO DAILY 06/29/19 [History Last Taken Unknown] atorvastatin 80 mg tablet 80 mg PO DAILY 06/29/19 [History Last Taken Unknown] escitalopram oxalate 10 mg tablet 10 mg PO DAILY 06/29/19 [History Last Taken Unknown] gabapentin 300 mg capsule 300 mg PO QHS 06/29/19 [History Last Taken Unknown] lisinopril 2.5 mg tablet 2.5 mg PO DAILY 06/29/19 [History Last Taken Unknown] rivaroxaban 20 mg tablet 20 mg PO QPM 06/29/19 [History Last Taken Unknown] topiramate 50 mg tablet 50 mg PO QHS tab 06/29/19 [History Last Taken Unknown] omega-3 fatty acids 1,000 mg capsule 1,000 mg PO DAILY 06/30/19 [History Last Taken Unknown] cholecalciferol (vitamin D3) 25 mcg (1,000 unit) tablet 1 tab PO DAILY 02/20/20 [History Last Taken Unknown] lactulose 10 gram/15 mL oral solution 30 ml PO BID ml 02/20/20 [History Last Taken Unknown] morphine 30 mg tablet,extended release 30 tab PO TID 02/20/20 [History Last Taken Unknown] omeprazole 20 mg tablet,delayed release 20 mg PO DAILY 02/20/20 [History Last Taken Unknown] potassium chloride 10 mEq tablet,extended release(part/cryst) 20 meq PO DAILY tab 02/20/20 [History Last Taken Unknown] Polyethylene Glycol 3350 [Gavilax] 17 g PO DAILY PRN PRN 08/02/20 [History Last Taken Unknown] acetaminophen 500 mg PO TID PRN PRN 08/02/20 [History Last Taken Unknown] albuterol sulfate 2.5 mg INHALATION Q4H PRN PRN 08/02/20 [History Last Taken Unknown] bisacodyl 5 - 10 mg PO DAILY PRN PRN 08/02/20 [History Last Taken Unknown] ondansetron HCl 4 mg PO Q8H PRN PRN 08/02/20 [History Last Taken Unknown] polyethylene glycol 3350 17 gm PO DAILY PRN PRN 08/02/20 [History Last Taken Unknown] sennosides 2 tab PO PRN PRN 08/02/20 [History Last Taken Unknown] tizanidine 4 mg PO QHS 08/02/20 [History Last Taken Unknown] Allergy/AdvReac Type Severity Reaction Status Date / Time No Known Allergies Allergy Verified 08/02/20 06:36 unable to obtain (Patient is poor historian) Surgical History H/O mitral valve replacement Social History Smoking Status: Current every day smoker tobacco type: cigarettes ROS ROS Narrative All review of systems were negative except as mentioned above in the history of present illness and the other review of systems.. Patient also does claim abdominal pain, nausea and vomiting. Vital Signs Vital Signs Vital Signs: 12/01/20 12:35 12/01/20 13:28 12/01/20 14:15 Temperature 36.7 C Temperature Source Oral Pulse Rate 79 70 62 Respiratory Rate 18 Blood Pressure 98/60 100/70 100/63 Blood Pressure Mean 72 75 Pulse Ox 95 99 Oxygen Delivery Method Room Air Room Air 12/01/20 14:17 12/01/20 14:42 Temperature 36.7 C Temperature Source Oral Pulse Rate 65 Respiratory Rate 18 Blood Pressure 96/54 L Blood Pressure Mean 68 Pulse Ox 99 96 Oxygen Delivery Method Room Air Room Air Weight Weight: 94.2 kg Body Mass Index (BMI) 38.0 Physical Exam Narrative Anterior chest wall tenderness. Patient does have old sternotomy scar. Const Constitutional Narrative: Awake. Afebrile. Does have dysarthria and speech is limited. HEENT normocephalic and head/scalp atraumatic Eyes Eyes Narrative: No icterus Resp normal respiratory effort and clear to auscultation bilaterally Cardio regular rate, regular rhythm, S1 normal heart sound and S2 normal heart sound GI normal to inspection, nondistended, normoactive bowel sounds and non-distended GI Narrative: Diffusely tender Extremity normal to inspection Skin no rashes or lesions noted Skin Narrative: Numerous tattoos throughout her body Lab / Micro Data Attestation: I reviewed the patient's lab results. Result Diagrams: 12/01/20 12:55 12/01/20 12:55 Labs: Laboratory Results - last 24 hr 12/01/20 12/01/20 12/01/20 12:55 12:55 12:55 WBC 9.4 RBC 5.32 Hgb 14.5 Hct 45.4 MCV 85.3 MCH 27.3 MCHC 31.9 L RDW Std Deviation 45.1 H RDW Coeff of [place] 14.7 H Plt Count 248 MPV 9.2 Immature Gran % (Auto) 0.300 Neut % (Auto) 65.3 Lymph % (Auto) 26.3 [place] % (Auto) 5.6 Eos % (Auto) 2.0 Baso % (Auto) 0.5 Absolute Neuts (auto) 6.1 Absolute Lymphs (auto) 2.46 Nucleated RBC % 0 D-Dimer Quant (PE/DVT) 0.33 Sodium 140 Potassium 3.9 Chloride 107 Carbon Dioxide 27.0 Anion Gap 6 BUN 8 Creatinine 0.79 Estim Creat Clear Calc 62.14 Est GFR (MDRD) Af Amer 96 Est GFR (MDRD) Non-Af 79 BUN/Creatinine Ratio 10.1 Glucose 106 Calcium 9.3 Troponin I < 0.015 Radiology Impression Chest X-Ray 12/01/20 13:01 IMPRESSION: No active pulmonary disease. Electronically Signed: Juan Antonio Julian MD at 13:30 EDT Tel , Service support , Assessment & Plan Assessment/Plan (1) Chest pain: QUALIFIERS: Chest pain type: other chest pain Qualified Code(s): R07.89 - Other chest pain PLAN: 1. Chest pain * Atypical * LISA of 3 * Given the patient's prior history, the plan will be to bring the patient in and perform nuclear stress test which showed unfortunately not be able to be performed until the first. In the meantime, cycle troponins and repeat EKG. 2. History of mitral valve replacement * Bioprosthetic valve. Appears to be stable at this time. 3. History of stroke * Patient has dysarthria at baseline * Has right-sided weakness at baseline 4. History of anticoagulant use * I suspect patient may have some underlying paroxysmal atrial fibrillation. Will request records from [facility] is no other records specify the etiolo gy. 5. VTE prophylaxis: Not indicated patient is already anticoagulated. Visit Charges Inpatient E&M: 25578 Init Hosp L2
--- NOTE | 2020-12-01 17:56 | EKG12_ITS ---
Test Reason : CP ADMIT Blood Pressure : / mmHG Vent. Rate : 067 BPM Atrial Rate : 067 BPM P-R Int : 238 ms QRS Dur : 084 ms QT Int : 430 ms P-R-T Axes : 052 012 009 degrees QTc Int : 454 ms Sinus rhythm with 1st degree A-V block Low voltage QRS Inferior infarct , age undetermined Abnormal ECG Confirmed by STEPHANIE CHE, JOLANTA ([id number]), purchasing expeditor DOREEN BONDS ([id number]) on 12/04/2020 1:08:04 PM Referred By: BRAYAN Confirmed By:JOLANTA BROWN MD
--- NOTE | 2020-12-01 19:27 | NURSING ---
This RN phones and speaks with patient's son, Prabhu. Updated son on patient condition. Son states that patient had cardiac medical procedures done at [facility] in 2013.
[2020-12-01] MEDS: Lactulose 20 GM/30 ML UDC PO (20:21)
[2020-12-01] MEDS: Gabapentin 300 MG Capsule PO (20:21)
[2020-12-01] MEDS: morphine SR 15 MG Tablet 30 MG PO (20:21)
[2020-12-01] MEDS: Rivaroxaban 20 MG Tablet PO (20:21)
[2020-12-02 02:57] VITALS: PULSE 62
--- NOTE | 2020-12-02 03:27 | EKG12_ITS ---
Test Reason : AM Blood Pressure : / mmHG Vent. Rate : 066 BPM Atrial Rate : 066 BPM P-R Int : 226 ms QRS Dur : 082 ms QT Int : 412 ms P-R-T Axes : 054 021 021 degrees QTc Int : 431 ms Sinus rhythm with 1st degree A-V block Low voltage QRS Inferior infarct , age undetermined Abnormal ECG Confirmed by STEPHANIE CHE, JOLANTA ([id number]), newspaper photo editor DOREEN BONDS ([id number]) on 12/04/2020 1:23:47 PM Referred By: BRAYAN Confirmed By:JOLANTA BROWN MD
[2020-12-02 03:45] VITALS: BP 94/54; PULSE 69; RESP 18; TEMP 36.6; O2SAT 94
[2020-12-02] MEDS: Aspirin E.C. 81 MG Tablet PO (04:59)
[2020-12-02 05:03] VITALS: BP 98/42; PULSE 60; RESP 18; TEMP 36.7; O2SAT 94
[2020-12-02 07:00] VITALS: PULSE 57
[2020-12-02 07:10] LABS: Anion Gap 4 (5-15); BUN 7 mg/dL (7-18); BUN/Creat Ratio 9.8 RATIO (10-20); Calcium,Total 8.5 mg/dL (8.5-10.1); Chloride 109 mmol/L (98-107); Cholesterol 107 mg/dL (200); Creatinine, Serum 0.72 mg/dL (0.55-1.02); EST Glomerular Filtration Rate 89 mL/min (>60); Est Glom Filt Rate - Afr Amer 108 mL/min (>60); Estimated Creatinine Clearance 68.18 ml/min; Glucose 92 mg/dL (74-106); High Density Lipoprotein 45 mg/dL; Potassium 3.8 mmol/L (3.5-5.1); Sodium Level 140 mmol/L (136-145); Triglycerides 187 mg/dL; Very Low Density Lipoprotein 37 mg/dL (5-40)
--- NOTE | 2020-12-02 09:17 | NURSING ---
Pt returned from stress test, pt refusing tele monitor. clinical documentation improvement specialist Jodi to room also tried to place tele monitor but pt refused.
[2020-12-02] MEDS: morphine SR 15 MG Tablet 30 MG PO (09:22)
[2020-12-02 09:40] VITALS: BP 119/80; PULSE 68; RESP 18; TEMP 36.2; O2SAT 97
--- NOTE | 2020-12-02 10:30 | STRESSREP ---
Stress Test Report Myocardial perfusion stress test. 55-year-old lady with a history of chest pain. Stress protocol: Resting EKG demonstrates normal sinus rhythm with a rate of 62 bpm normal intervals are noted resting blood pressure is 116/70 mmHg. 0.4 mg of regadenoson was infused per usual protocol followed by rapid intravenous saline flush injection continuous EKG monitoring was performed. The maximum heart rate attained was 95 bpm which was 58% of maximum predicted heart rate the maximum workload was 1 metabolic equivalent. At rest there were no ST or T wave changes noted to suggest abnormal flow reserve and at peak infusion nonspecific ST changes were noted with did not meet the criteria for ischemia. No clinical angina was noted. Myocardial perfusion protocol. 12.0 mCi of technetium 99m sestamibi was injected at rest. 0.4 mg of regadenoson was infused per usual protocol. At peak infusion 36.0 mCi of technetium 99m sestamibi was injected stress images were obtained stress and rest images were reconstructed and compared in the short axis vertical long and horizontal long axis. Gated images were also obtained. Perfusion SPECT analysis: Review of the stress images demonstrate mildly reduced perfusion in the inferior wall. The rest of the rodriguez appear to be well perfused. The resting images demonstrate a similar pattern with significant GI attenuation artifact suggesting inferior GI attenuation artifact. No obvious ischemia is noted. Gated SPECT analysis: The gated ejection fraction is 81%. Conclusion: Normal pharmacologic myocardial perfusion stress test. Preserved ejection fraction.
[2020-12-02] MEDS: Lisinopril 2.5 MG Tablet PO (11:02)
[2020-12-02] MEDS: Escitalopram Oxalate 10 MG Tablet PO (11:02)
[2020-12-02] MEDS: Potassium Chloride Oral Tablet 20 MEQ PO (11:02)
[2020-12-02] MEDS: Pantoprazole Sodium 20 MG Tablet PO (11:02)
--- NOTE | 2020-12-02 11:23 | DCINST_ITS ---
Discharge Instructions Diet Discharge Diet: 2000 mg Sodium Diet Activity Discharge Activity: Return to Normal Activity and May Not Drive Dressing / Incision Call your doctor if your incision/area has: Sudden Increased Bleeding, Increased Pain/ Swelling, Foul Smelling Discharge and Swelling at the incision site Call your doctor if you observe: Fever of 101 or Higher, Coldness, Increased Pain, Numbness or Tingling, Inability to urinate, Inability to have a bowel movement, Using more than one pad per hour, Shortness of breath, Dizziness, Swelling in the ankles, Chest pain, Prolonged hiccupping, Increased palpitations (irregular heartbeat), Calf discomfort and Uncontrolled pain Follow Up Care Test Results: Test results from this visit will be discussed in further detail at your follow-up appointment, if applicable. Discharge Plan Admission Admit Date/Time: 12/01/20 14:46 Primary Reason for Your Visit: Atypical chest pain.Acute coronary syndrome ruled out. Attending Provider: Pipo Houser Primary Care Provider: Eloise Best RIVET HAMMER MACHINE OPERATOR Instructions Patient Instructions: ED Chest Pain, Noncardiac Discharge Orders/Prescriptions Prescriptions: Continued aspirin [Adult Aspirin Regimen] 81 mg tablet,delayed release (DR/EC) 81 mg PO DAILY RF: 0 atorvastatin 80 mg tablet 80 mg PO QHS RF: 0 gabapentin [Neurontin] 300 mg capsule 300 mg PO QHS RF: 0 lisinopril 2.5 mg tablet 2.5 mg PO DAILY RF: 0 Xarelto 20 mg tablet 20 mg PO QPM RF: 0 topiramate [Topamax] 50 mg tablet 50 mg PO QHS RF: 0 omeprazole 20 mg tablet,delayed release (DR/EC) 20 mg PO DAILY RF: 0 potassium chloride 10 mEq tablet,ER particles/crystals 20 meq PO DAILY RF: 0 morphine 30 mg tablet extended release 30 mg PO BID RF: 0 cholecalciferol (vitamin D3) 25 mcg (1,000 unit) tablet 2 tab PO DAILY RF: 0 lactulose 10 gram/15 mL solution 30 ml PO BID RF: 0 polyethylene glycol 3350 17 GM packet 17 gm PO DAILY PRN PRN (Reason: Constipation) RF: 0 ondansetron HCl 4 MG tablet 4 mg PO Q8H PRN PRN (Reason: Nausea) RF: 0 acetaminophen 500 MG tablet 1,000 mg PO TID PRN PRN (Reason: Pain 1-10 Or Fever) RF: 0 albuterol sulfate 2.5 MG/3 ML solution for nebulization 2.5 mg INHALATION Q4H PRN PRN (Reason: Sob &/Or Wheezing) RF: 0 bisacodyl 5 MG tablet 5 - 10 mg PO DAILY PRN PRN (Reason: Constipation) RF: 0 tizanidine 4 MG capsule 4 mg PO QHS RF: 0 sennosides [Senokot] 8.6 mg Tablet 8.6 mg PO DAILY RF: 0 Referrals / Follow Up: Eloise Best RIVET HAMMER MACHINE OPERATOR, RIVET HAMMER MACHINE OPERATOR-C [Primary Care Provider] - Disposition Disposition (needs filled in before D/C Order can be placed): NonSkilled NH/Intermed Care
--- NOTE | 2020-12-02 11:26 | DS.PCM_ITS ---
Providers Date of Admission: 12/01/20 Primary Care Physician: NAVEEN Dixon Reason For Visit: CHEST PAIN Diagnosis Discharge Diagnosis (1) Chest pain: Status: Acute Code(s): R07.9 - Chest pain, unspecified Qualifiers: Chest pain type: other chest pain Qualified Code(s): R07.89 - Other chest pain Medications at Discharge Home Medications aspirin 81 mg tablet,delayed release 81 mg PO DAILY 06/29/19 atorvastatin 80 mg tablet 80 mg PO QHS 06/29/19 gabapentin 300 mg capsule 300 mg PO QHS 06/29/19 lisinopril 2.5 mg tablet 2.5 mg PO DAILY 06/29/19 rivaroxaban 20 mg tablet 20 mg PO QPM 06/29/19 topiramate 50 mg tablet 50 mg PO QHS tab 06/29/19 cholecalciferol (vitamin D3) 25 mcg (1,000 unit) tablet 2 tab PO DAILY 02/20/20 lactulose 10 gram/15 mL oral solution 30 ml PO BID ml 02/20/20 morphine 30 mg tablet,extended release 30 mg PO BID 02/20/20 omeprazole 20 mg tablet,delayed release 20 mg PO DAILY 02/20/20 potassium chloride 10 mEq tablet,extended release(part/cryst) 20 meq PO DAILY tab 02/20/20 acetaminophen 1,000 mg PO TID PRN PRN 08/02/20 albuterol sulfate 2.5 mg INHALATION Q4H PRN PRN 08/02/20 bisacodyl 5 - 10 mg PO DAILY PRN PRN 08/02/20 ondansetron HCl 4 mg PO Q8H PRN PRN 08/02/20 polyethylene glycol 3350 17 gm PO DAILY PRN PRN 08/02/20 tizanidine 4 mg PO QHS 08/02/20 sennosides [Senokot] 8.6 mg PO DAILY 12/01/20 Hospital Course Summary of Care Provided Hospital Course: This 55-year-old female with history of mitral valve replacement and stroke with residual right-sided weakness and dysarthria/aphasia was admitted for atypical chest pain. Twelve-lead EKG shows sinus rhythm at 77 bpm, personally reviewed block and old inferior infarct. Patient LISA risk score 3. Patient had nuclear stress test no evidence of stress-induced ischemia. Fasting profile, LDL 25, HDL 45. Patient is on Xarelto 20 mg daily with history of mitral valve replacement, bioprosthetic valve. Patient might have paroxysmal A. fib but during hospital course security monitor shows sinus rhythm with PVCs. Discharge medication reconciliation done. Discharge follow-up instructions completed. Discharge process discussed with the patient and all questions were answered to patient's satisfaction. Total time spent, exact 35 minutes on discharge meds reconciliation, examinatio n, coordination of care with nurses and ancillary staff, review of imaging and blood test and discussion with the patient on follow-up instructions Physical Exam Narrative Does not have chest pain. Has history of CVA with chronic right right-sided weakness, right upper extremity contracture. Stress test normal. security monitor shows sinus rhythm with PVCs. General: Alert, Oriented x3, Cooperative HEENT: Atraumatic, PERRLA, EOMI, Normocephalic Oral: No Gingival or Mucosal Lesions/ Ulcerations Neck: Supple, No JVD, Negative Carotid Bruits Lungs: Air entry diminished in bilateral lung bases. No crepitation/rhonchi Cardiovascular: Regular rate, Regular Rhythm, Normal S1, Normal S2, No murmurs Abdomen: Bowel Sounds Present, Soft, Non Tender, Non-Distended : No renal angle tenderness. No suprapubic tenderness. Extremities: No edema, Capillary Refill Less than 3 Seconds Skin: No rashes, No breakdown Musculoskeletal: No Tenderness to Palpation of Joints or Extremities Neurological: Right upper extremity contracture and weakness. Range of motion restricted and limited. Patient has chronic residual aphasia Psych/Mental Status: Flat affect. ABG / Lab / Microbiology Data Result Diagrams: 12/01/20 12:55 12/02/20 06:36 Laboratory: Laboratory Results - last 24 hr 12/01/20 12/01/20 12/01/20 12:55 12:55 12:55 WBC 9.4 RBC 5.32 Hgb 14.5 Hct 45.4 MCV 85.3 MCH 27.3 MCHC 31.9 L RDW Std Deviation 45.1 H RDW Coeff of Divina 14.7 H Plt Count 248 MPV 9.2 Immature Gran % (Auto) 0.300 Neut % (Auto) 65.3 Lymph % (Auto) 26.3 Love % (Auto) 5.6 Eos % (Auto) 2.0 Baso % (Auto) 0.5 Absolute Neuts (auto) 6.1 Absolute Lymphs (auto) 2.46 Nucleated RBC % 0 D-Dimer Quant (PE/DVT) 0.33 Sodium 140 Potassium 3.9 Chloride 107 Carbon Dioxide 27.0 Anion Gap 6 BUN 8 Creatinine 0.79 Estim Creat Clear Calc 62.14 Est GFR (MDRD) Af Amer 96 Est GFR (MDRD) Non-Af 79 BUN/Creatinine Ratio 10.1 Glucose 106 Calcium 9.3 Troponin I < 0.015 Triglycerides Cholesterol LDL Cholesterol VLDL Cholesterol HDL Cholesterol 12/01/20 12/01/20 12/02/20 16:38 19:45 06:36 WBC RBC Hgb Hct MCV MCH MCHC RDW Std Deviation RDW Coeff of Divina Plt Count MPV Immature Gran % (Auto) Neut % (Auto) Lymph % (Auto) Love % (Auto) Eos % (Auto) Baso % (Auto) Absolute Neuts (auto) Absolute Lymphs (auto) Nucleated RBC % D-Dimer Quant (PE/DVT) Sodium 140 Potassium 3.8 Chloride 109 H Carbon Dioxide 27.0 Anion Gap 4 L BUN 7 Creatinine 0.72 Estim Creat Clear Calc 68.18 Est GFR (MDRD) Af Amer 108 Est GFR (MDRD) Non-Af 89 BUN/Creatinine Ratio 9.8 L Glucose 92 Calcium 8.5 Troponin I < 0.015 < 0.015 Triglycerides 187 Cholesterol 107 LDL Cholesterol 25 VLDL Cholesterol 37 HDL Cholesterol 45 Radiography Diagnostic Testing: Radiology Impression Chest X-Ray 12/01/20 13:01 IMPRESSION: No active pulmonary disease. Electronically Signed: Juan Antonio Julian MD at 13:30 EDT Tel , Service support , D/C Instructions Discharge Diet: 2000 mg Sodium Diet Discharge Activity: Return to Normal Activity and May Not Drive Call your doctor if your incision/area has: Sudden Increased Bleeding, Increased Pain/ Swelling, Foul Smelling Discharge and Swelling at the incision site Call your doctor if you observe: Fever of 101 or Higher, Coldness, Increased Pain, Numbness or Tingling, Inability to urinate, Inability to have a bowel movement, Using more than one pad per hour, Shortness of breath, Dizziness, Swelling in the ankles, Chest pain, Prolonged hiccupping, Increased palpitations (irregular heartbeat), Calf discomfort and Uncontrolled pain Meaningful Use Info Meaningful Use Diagnoses (Choose all that apply): None applicable Discharge Plan Admission Admit Date/Time: 12/01/20 14:46 Primary Reason for Your Visit: Atypical chest pain.Acute coronary syndrome ruled out. Attending Provider: Pipo Houser Primary Care Provider: Eloise Best HOME LIGHTING ADVISER Instructions Patient Instructions: ED Chest Pain, Noncardiac Discharge Orders/Prescriptions Prescriptions: Continued aspirin [Adult Aspirin Regimen] 81 mg tablet,delayed release (DR/EC) 81 mg PO DAILY RF: 0 atorvastatin 80 mg tablet 80 mg PO QHS RF: 0 gabapentin [Neurontin] 300 mg capsule 300 mg PO QHS RF: 0 lisinopril 2.5 mg tablet 2.5 mg PO DAILY RF: 0 Xarelto 20 mg tablet 20 mg PO QPM RF: 0 topiramate [Topamax] 50 mg tablet 50 mg PO QHS RF: 0 omeprazole 20 mg tablet,delayed release (DR/EC) 20 mg PO DAILY RF: 0 potassium chloride 10 mEq tablet,ER particles/crystals 20 meq PO DAILY RF: 0 morphine 30 mg tablet extended release 30 mg PO BID RF: 0 cholecalciferol (vitamin D3) 25 mcg (1,000 unit) tablet 2 tab PO DAILY RF: 0 lactulose 10 gram/15 mL solution 30 ml PO BID RF: 0 polyethylene glycol 3350 17 GM packet 17 gm PO DAILY PRN PRN (Reason: Constipation) RF: 0 ondansetron HCl 4 MG tablet 4 mg PO Q8H PRN PRN (Reason: Nausea) RF: 0 acetaminophen 500 MG tablet 1,000 mg PO TID PRN PRN (Reason: Pain 1-10 Or Fever) RF: 0 albuterol sulfate 2.5 MG/3 ML solution for nebulization 2.5 mg INHALATION Q4H PRN PRN (Reason: Sob &/Or Wheezing) RF: 0 bisacodyl 5 MG tablet 5 - 10 mg PO DAILY PRN PRN (Reason: Constipation) RF: 0 tizanidine 4 MG capsule 4 mg PO QHS RF: 0 sennosides [Senokot] 8.6 mg Tablet 8.6 mg PO DAILY RF: 0 Referrals / Follow Up: Eloise Best HOME LIGHTING ADVISER, HOME LIGHTING ADVISER-C [Primary Care Provider] - Disposition Disposition (needs filled in before D/C Order can be placed): Assisted Living Visit Charges Inpatient E&M: 00520 Disch Hosp
[2020-12-02 11:57] VITALS: BP 119/80; PULSE 68; RESP 18; TEMP 36.2; O2SAT 97
--- NOTE | 2020-12-02 12:20 | NURSING ---
Report called to nurse Barbara for pt transfer back to [facility].
== END 2020-12-02 13:00 | disposition home or self-care (01) | DRG 203 ==
LOC: ED 14:28 → PCU 12-02 07:13
PROVIDERS: Emergency Provider Emergency Medicine; PCP Nurse Practitioner Adult Health; Visit Provider Internal Medicine
DX: R07.89 Other chest pain (principal); I69.351 Hemiplegia and hemiparesis following cerebral infarction affecting right dominant side; J44.9 Chronic obstructive pulmonary disease, unspecified; I69.322 Dysarthria following cerebral infarction; E78.5 Hyperlipidemia, unspecified; Z79.82 Long term (current) use of aspirin; Z79.899 Other long term (current) drug therapy; Z79.891 Long term (current) use of opiate analgesic; F17.210 Nicotine dependence, cigarettes, uncomplicated; Z95.2 Presence of prosthetic heart valve
CPT/HCPCS: 36415; 71045; 78452; 80048; 80061; 84484; 85025; 85379; 93005; 93017; 96361; 96374; 96375; 97161; 97166; 99221; 99285; A9500; J7030; A4216; G0378; J2405; J2785